=== PATIENT | female | born 1975 | race Two or more races ===

== ENCOUNTER 2021-05-24 12:43 | Emergency (ER) | payer MEDICAID, OTHER ==
[~2021-05-24] VITALS: Ht 162.6 cm; Wt 74.8 kg
[2021-05-24 13:45] VITALS: BP 123/68
[2021-05-24] MEDS ORDERED: IBUPROFEN 800 MG TAB PO ONE (15:15)
== END 2021-05-24 15:30 | disposition home or self-care (01) ==
LOC: EDBD 12:43 → ER 12:43
DX: S16.1XXA Strain of muscle, fascia and tendon at neck level, initial encounter (principal); S39.012A Strain of muscle, fascia and tendon of lower back, initial encounter; S50.11XA Contusion of right forearm, initial encounter; V49.49XA Driver injured in collision with other motor vehicles in traffic accident, initial encounter; Y93.89 Activity, other specified; Y92.488 Other paved roadways as the place of occurrence of the external cause; Y99.8 Other external cause status
CPT/HCPCS: 72040; 72100